=== PATIENT | male | born 1990 | race Caucasian/White ===

== ENCOUNTER 2016-05-05 17:04 | Emergency (ER) | payer SELFPAY ==
[2016-05-05 17:04] VITALS: BMI 23.1
[2016-05-05] MEDS ORDERED: ONDANSETRON HCL 4 MG ODT TAB PO ONE (17:28)
--- NOTE | 2016-05-05 17:31 | EDPRACDOC ---
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 HE WAS IN A [facility]UG [facility] C[facility] UNTIL WEDNESDAY, 05/02. THE PT USED AGAIN TODAY AND OVERDOSED. EMS WAS CALLED AND GAVE PT 0.5 MG NARCAN. THE PT IS AWAKE AND ALERT UPON ARRIVAL HERE. HE FEELS NAUSEOUS. 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 Surgical History: Reports: Other ( SURGERY TO LEFT EAR TO REMOVE TUMOR) - Social Medical History Smoking Status: Heavy tobacco smoker (5 or more cigarettes/day or daily pipe/ cigar) ETOH: None Substance Abuse: None Lives In: Home EDM Review of Systems - Review of Systems ROS Negative Except as Marked: Yes All systems reviewed and were negative except as marked Gastrointestinal: Nausea, Vomiting - Physical Exam Constitutional: Alert (Awake), No apparent distress Oriented to: Time, Person, Place Last recorded Vital Signs: Last Vital Signs Temp 98.9 F 05/05/16 17:15 Pulse 99 05/05/16 17:15 Resp 20 05/05/16 17:15 BP 147/85 05/05/16 17:15 Pulse Ox 95 05/05/16 17:15 Oxygen Pulse Oxygen Saturation 95 O2 Device Room Air Oxygen Flow Rate Fraction of Inspired Oxygen ( FIO2) - HEENT Head: Normal ( normocephalic) Eye Exam: Normal (PERRL, EOMI, Sclera white) Oropharynx: Normal (Pharynx:Moist without exudate,Gums-no swelling) ENT EAC: Normal TMJ: Normal Nose: No Symptoms Reported (septum midline) Neck: Normal (FROM, trachea at midline) - Respiratory/Cardiovascular Respiratory: Normal - CTA (BBS clear to auscultation without adventitious sounds ) Cardiovascular: Normal (RRR without murmur, gallop or rub) - GI Auscultation: Normal (NABS) Palpation: Normal (Soft,No rebound or guarding, non distended) Tenderness: Non tender Villanueva's Sign: Negative - Musculoskeletal Back: Normal (Non-Tender) Extremities: Normal (Normal tone, Pulses 2+ No cyanosis or edema, FROM) - Integumentary Skin: Other (TRACK SOLIMAN) Lymphatics: Normal - Neurologic Memory Impaired: Normal Motor Function: Normal (Normal tone, Pulses 2+ No cyanosis or edema, FROM) Cranial Nerve: Normal (CN II-X11 intact sensation, strength 5/5) Cerebellar: Normal Mood Description: Normal Perception: Normal - Re-evaluation Re-evaluation 1 Re-evaluation Time: 18:17 (IMPROVED) - Additional Information Additional Information: PT REFUSED CXR OR MONITOR. PT AWAKE AND ALERT. HE WANTS TO GO HOME. HIS UNCLE IS HERE TO PICK HIM UP. Decision Time to Discharge: 18:18 - Departure Yes I personally saw and evaluated the patient. Disposition: Home Condition: Fair Final Diagnosis: Heroin overdose Instructions: Narcotic Abuse (ED), Accidental Overdose Education/Counseling Given To: Patient Education/Counseling Given Regarding: Diagnosis, Treatment, Follow Up Referrals: None,No Provider [Primary Care Provider] - One Week Donald Albarran II, MD [Staff Physician] - One Week Prescriptions: No Action No Home Medications 0 NA DIR #0 info Additional Instructions: STOP USING HEROIN
[2016-05-05 18:29] VITALS: BP 150/98; PULSE 63; TEMP 98.6
== END 2016-05-05 18:30 | disposition home or self-care (01) ==
LOC: ED 17:04
DX: T40.1X1A Poisoning by heroin, accidental (unintentional), initial encounter (principal); F32.9 Major depressive disorder, single episode, unspecified; F17.200 Nicotine dependence, unspecified, uncomplicated
CPT/HCPCS: 99282; J3490